=== PATIENT | male | born 1980 | race African-American/Black ===

== ENCOUNTER 2020-11-04 22:39 | Emergency (ER) | payer OTHER ==
[~2020-11-04] VITALS: Ht 182.9 cm; Wt 93.4 kg
[2020-11-04] MEDS ORDERED: ALBU8HFA2 INH (23:04)
[2020-11-04] MEDS ORDERED: CETI5 PO (23:04)
== END 2020-11-04 23:46 | disposition home or self-care (01) ==
LOC: ER 22:39
DX: L72.8 Other follicular cysts of the skin and subcutaneous tissue (principal); Z91.013 Allergy to seafood
CPT/HCPCS: 76882; 99283-25